=== PATIENT | female | born 1945 | race Caucasian/White ===

== ENCOUNTER 2019-09-09 15:19 | Inpatient (IN) | payer MEDICARE ==
[~2019-09-09] VITALS: Ht 157.5 cm; Wt 81.2 kg
[2019-09-09] MEDS ORDERED: HYDROCODONE/ACETAMINOPHEN 5/325MG TABLET PO ONE (16:30)
[2019-09-09 17:06] LABS: BASOPHILS % 1.2 % (0.0-2.0); HEMATOCRIT. 33.3 % (36.0-48.0); HEMOGLOBIN. 11.1 g/dL (12.0-16.0); LYMPHOCYTES % 23.9 % (20.0-50.0); MEAN CORPUSCULAR HEMOGLOBIN 31.7 pg (28.0-32.0); MEAN CORPUSCULAR VOLUME 94.9 fL (81.0-99.0); MEAN PLATELET VOLUME 9.7 fl (7.4-10.4); MONOCYTES % 7.2 % (2.0-8.0); NEUTROPHILS % 63.7 % (40.0-76.0); PLATELET 243 x1000/uL (130-400); RED BLOOD CELL COUNT 3.51 mill/uL (4.2-5.4)
[2019-09-09 17:14] LABS: CHLORIDE 109 mEq/L (98-107)
[2019-09-09 17:15] LABS: PARTIAL THROMBOPLASTIN TIME 25.9 sec (23.4-31.0); PROTHROMBIN TIME 10.2 sec (9.6-11.0)
[2019-09-09] MEDS ORDERED: HYDRALAZINE 20MG/ML VIAL IV ONE (18:30)
[2019-09-09] MEDS ORDERED: IPRATROPIUM/ALBUTEROL 0.5-3(2.5)MG/3ML NEB NEB PRN (21:15)
[2019-09-09] MEDS ORDERED: DIPHENHYDRAMINE 50MG/ML VIAL IV PRN (21:15)
[2019-09-09] MEDS ORDERED: GUAIFENESIN 200MG/10ML SUGAR FREE UDC PO PRN (21:15)
[2019-09-09] MEDS ORDERED: HYDROCODONE/ACETAMINOPHEN 5/325MG TABLET PO PRN (21:15)
[2019-09-09] MEDS ORDERED: MAGNESIUM HYDROXIDE 400MG/5ML 30ML UDC PO PRN (21:15)
[2019-09-09] MEDS ORDERED: HYDRALAZINE 20MG/ML VIAL IV PRN ×2 (21:15→23:30)
[2019-09-09] MEDS ORDERED: ONDANSETRON HCL 4MG/2ML INJ IV PRN (21:15)
[2019-09-09] MEDS ORDERED: DEXTROSE 50% WATER 50ML SYRINGE IV PRN (21:15)
[2019-09-09] MEDS ORDERED: MAGNESIUM/ALUMINUM HYDROXIDE/SIMETHICONE 30ML UDC PO PRN (21:15)
[2019-09-09] MEDS ORDERED: ACETAMINOPHEN 325MG TABLET PO PRN (21:15)
[2019-09-10] VITALS (7 sets, daily range): BP systolic 124–205; BP diastolic 54–92
[2019-09-10] MEDS: FAMOTIDINE 20MG TABLET PO SCH ×2 (00:49→20:10)
[2019-09-10] MEDS: SODIUM CHLORIDE 0.9% INJ 3ML FLUSH IVF SCH ×4 (00:49→20:11)
[2019-09-10] MEDS ORDERED: METOPROLOL TARTRATE 100MG TABLET PO NR (01:00)
[2019-09-10] MEDS: INSULIN LISPRO 100 UNITS/ML SUBCUT SCH ×5 (01:07→20:13)
[2019-09-10] MEDS ORDERED: PNEUMOCOCCAL 23-VAL P-SAC VAC 0.5 ML IM ONE (02:15)
[2019-09-10 07:12] LABS: EOSINOPHILS % 2.6 % (0.0-5.0); HEMATOCRIT. 33.2 % (36.0-48.0); MEAN CORPUSCULAR VOLUME 96.2 fL (81.0-99.0); MEAN PLATELET VOLUME 10.1 fl (7.4-10.4); MONOCYTES % 6.4 % (2.0-8.0); PLATELET 258 x1000/uL (130-400); RED BLOOD CELL COUNT 3.45 mill/uL (4.2-5.4); RED CELL DISTRIBUTION WIDTH 14.5 % (11.6-14.6)
[2019-09-10] MEDS: BLOOD SUGAR DIAGNOSTIC STRIP TEST SCH ×4 (08:09→20:12)
[2019-09-10] MEDS ORDERED: NIFEDIPINE XL 60MG TAB PO SCH (09:00)
[2019-09-10] MEDS ORDERED: METOPROLOL TARTRATE 25MG TABLET PO SCH (09:00)
[2019-09-10] MEDS: ALLOPURINOL 100 MG TABLET PO SCH (09:47)
[2019-09-10] MEDS: LOSARTAN POTASSIUM 100 MG TABLET PO SCH (09:47)
[2019-09-10] MEDS: METOPROLOL TARTRATE 25MG TABLET PO SCH ×2 (09:48→20:11)
[2019-09-10] MEDS ORDERED: INSULIN GLARGINE UD 100 UNITS/ML SYR SUBCUT SCH ×2 (10:00)
[2019-09-10] MEDS ORDERED: SODIUM POLYSTYRENE SULFONATE 15 G/60 ML BOT PO SCH (10:00)
[2019-09-10] MEDS ORDERED: FAMOTIDINE 20MG TABLET PO SCH (21:00)
[2019-09-11] MEDS ORDERED: NIFEDIPINE XL 60MG TAB PO SCH (00:15)
[2019-09-11] MEDS: BLOOD SUGAR DIAGNOSTIC STRIP TEST SCH ×4 (06:10→21:32)
[2019-09-11] MEDS: SODIUM CHLORIDE 0.9% INJ 3ML FLUSH IVF SCH ×3 (06:10→21:46)
[2019-09-11 06:50] LABS: BASOPHILS % 0.7 % (0.0-2.0); EOSINOPHILS % 3.6 % (0.0-5.0); HEMATOCRIT. 31.2 % (36.0-48.0); HEMOGLOBIN. 10.4 g/dL (12.0-16.0); LYMPHOCYTES % 25.9 % (20.0-50.0); MEAN CORPUSCULAR HEMOGLOBIN 31.8 pg (28.0-32.0); MEAN CORPUSCULAR VOLUME 94.8 fL (81.0-99.0); MEAN PLATELET VOLUME 9.7 fl (7.4-10.4); MONOCYTES % 5.9 % (2.0-8.0); NEUTROPHILS % 63.9 % (40.0-76.0); PLATELET 244 x1000/uL (130-400); RED BLOOD CELL COUNT 3.28 mill/uL (4.2-5.4); RED CELL DISTRIBUTION WIDTH 14.3 % (11.6-14.6)
[2019-09-11 08:00] VITALS: BP 167/66
[2019-09-11] MEDS: LOSARTAN POTASSIUM 100 MG TABLET PO SCH (09:18)
[2019-09-11] MEDS: METOPROLOL TARTRATE 25MG TABLET PO SCH ×2 (09:18→21:45)
[2019-09-11] MEDS: ALLOPURINOL 100 MG TABLET PO SCH (09:18)
[2019-09-11] MEDS: INSULIN LISPRO 100 UNITS/ML SUBCUT SCH ×4 (09:20→21:45)
[2019-09-11 10:30] VITALS: BP 141/65
[2019-09-11 12:00] VITALS: BP 148/62
[2019-09-11] MEDS: INSULIN GLARGINE UD 100 UNITS/ML SYR SUBCUT SCH (13:30)
[2019-09-11 16:00] VITALS: BP 124/82
[2019-09-11 20:00] VITALS: BP 114/45
[2019-09-11] MEDS: FAMOTIDINE 20MG TABLET PO SCH (21:45)
[2019-09-12] VITALS: BP 164/60
[2019-09-12 04:00] VITALS: BP 202/73
[2019-09-12] MEDS: SODIUM CHLORIDE 0.9% INJ 3ML FLUSH IVF SCH ×3 (05:25→21:01)
[2019-09-12] MEDS: CLONIDINE 0.1MG TABLET PO PRN (05:27)
[2019-09-12 07:01] LABS: BASOPHILS % 1.3 % (0.0-2.0); EOSINOPHILS % 3.3 % (0.0-5.0); HEMATOCRIT. 31.3 % (36.0-48.0); HEMOGLOBIN. 10.6 g/dL (12.0-16.0); LYMPHOCYTES % 23.6 % (20.0-50.0); MEAN CORPUSCULAR VOLUME 94.9 fL (81.0-99.0); MONOCYTES % 6.7 % (2.0-8.0); NEUTROPHILS % 65.1 % (40.0-76.0); PLATELET 195 x1000/uL (130-400); RED CELL DISTRIBUTION WIDTH 14.1 % (11.6-14.6)
[2019-09-12 08:00] VITALS: BP 128/44
[2019-09-12] MEDS: INSULIN LISPRO 100 UNITS/ML SUBCUT SCH ×5 (08:10→21:00)
[2019-09-12] MEDS: BLOOD SUGAR DIAGNOSTIC STRIP TEST SCH ×4 (08:21→21:01)
[2019-09-12] MEDS: LOSARTAN POTASSIUM 100 MG TABLET PO SCH (09:51)
[2019-09-12] MEDS: ALLOPURINOL 100 MG TABLET PO SCH (09:51)
[2019-09-12] MEDS: METOPROLOL TARTRATE 25MG TABLET PO SCH ×2 (09:51→21:01)
[2019-09-12] MEDS: INSULIN GLARGINE UD 100 UNITS/ML SYR SUBCUT SCH (09:55)
[2019-09-12 16:00] VITALS: BP 109/46
[2019-09-12 20:00] VITALS: BP 184/71
[2019-09-12] MEDS: FAMOTIDINE 20MG TABLET PO SCH (21:00)
[2019-09-13] VITALS: BP 178/71
[2019-09-13] MEDS: CLONIDINE 0.1MG TABLET PO PRN ×2 (03:24→10:09)
[2019-09-13 04:00] VITALS: BP 117/35
[2019-09-13] MEDS: SODIUM CHLORIDE 0.9% INJ 3ML FLUSH IVF SCH ×2 (06:35→14:25)
[2019-09-13 07:38] LABS: BASOPHILS % 0.8 % (0.0-2.0); EOSINOPHILS % 3.5 % (0.0-5.0); HEMATOCRIT. 30.7 % (36.0-48.0); HEMOGLOBIN. 10.6 g/dL (12.0-16.0); LYMPHOCYTES % 21.3 % (20.0-50.0); MEAN CORPUSCULAR HEMOGLOBIN 32.8 pg (28.0-32.0); MEAN CORPUSCULAR VOLUME 94.4 fL (81.0-99.0); MEAN PLATELET VOLUME 9.8 fl (7.4-10.4); MONOCYTES % 6.7 % (2.0-8.0); NEUTROPHILS % 67.7 % (40.0-76.0); PLATELET 212 x1000/uL (130-400); RED BLOOD CELL COUNT 3.25 mill/uL (4.2-5.4)
[2019-09-13] MEDS: BLOOD SUGAR DIAGNOSTIC STRIP TEST SCH ×2 (08:06→12:40)
[2019-09-13] MEDS: INSULIN LISPRO 100 UNITS/ML SUBCUT SCH ×2 (08:44→14:37)
[2019-09-13] MEDS: METOPROLOL TARTRATE 25MG TABLET PO SCH (10:08)
[2019-09-13] MEDS: ALLOPURINOL 100 MG TABLET PO SCH (10:08)
[2019-09-13] MEDS: LOSARTAN POTASSIUM 100 MG TABLET PO SCH (10:09)
[2019-09-13] MEDS: INSULIN GLARGINE UD 100 UNITS/ML SYR SUBCUT SCH (12:55)
[2019-09-13 15:09] VITALS: BP 152/55
== END 2019-09-13 18:07 | DRG 559 ==
LOC: ER 15:19 → EDBEDREQTM 20:36 → EDBEDREQ 20:36 → ENRESERV 22:13 → 7WST 23:45
PROVIDERS: ADMIT Internal Medicine; ATTEND Internal Medicine
PROC: 3E1M39Z Irrigation of Peritoneal Cavity using Dialysate, Percutaneous Approach (ICD-10-PCS; 2019-09-10)
PROC: 3E1M39Z Irrigation of Peritoneal Cavity using Dialysate, Percutaneous Approach (ICD-10-PCS; 2019-09-11)
PROC: 3E1M39Z Irrigation of Peritoneal Cavity using Dialysate, Percutaneous Approach (ICD-10-PCS; 2019-09-12)
PROC: 3E1M39Z Irrigation of Peritoneal Cavity using Dialysate, Percutaneous Approach (ICD-10-PCS; principal; 2019-09-13)
DX: T84.124A Displacement of internal fixation device of right femur, initial encounter (principal); N18.6 End stage renal disease; I13.11 Hypertensive heart and chronic kidney disease without heart failure, with stage 5 chronic kidney disease, or end stage renal disease; N17.9 Acute kidney failure, unspecified; E87.5 Hyperkalemia; E11.22 Type 2 diabetes mellitus with diabetic chronic kidney disease; M10.9 Gout, unspecified; M19.90 Unspecified osteoarthritis, unspecified site; R09.89 Other specified symptoms and signs involving the circulatory and respiratory systems; E11.42 Type 2 diabetes mellitus with diabetic polyneuropathy; D64.9 Anemia, unspecified; M47.817 Spondylosis without myelopathy or radiculopathy, lumbosacral region; Y83.8 Other surgical procedures as the cause of abnormal reaction of the patient, or of later complication, without mention of misadventure at the time of the procedure; Z99.2 Dependence on renal dialysis; Y92.89 Other specified places as the place of occurrence of the external cause
CPT/HCPCS: 36415; 71045; 72170; 73560; 80048; 80053; 82962; 83036; 83880; 84443; 84484; 85025; 90732; 93005; 93970; 97116; 97162; 97166; 97530; 99291; J0360; J1200; J1815

== ENCOUNTER 2019-09-13 18:10 | Inpatient (IN) | payer MEDICARE ==
[~2019-09-13] VITALS: Ht 157.5 cm; Wt 81.2 kg
[2019-09-13 19:00] VITALS: BP 188/51
[2019-09-13] MEDS ORDERED: ACETAMINOPHEN 325MG TABLET PO PRN (19:30)
[2019-09-13] MEDS ORDERED: DEXTROSE 50% WATER 50ML SYRINGE IV PRN (19:30)
[2019-09-13] MEDS ORDERED: GUAIFENESIN 200MG/10ML SUGAR FREE UDC PO PRN (19:30)
[2019-09-13] MEDS ORDERED: MAGNESIUM/ALUMINUM HYDROXIDE/SIMETHICONE 30ML UDC PO PRN (19:30)
[2019-09-13] MEDS ORDERED: ONDANSETRON HCL 4MG/2ML INJ IV PRN (19:30)
[2019-09-13] MEDS ORDERED: MAGNESIUM HYDROXIDE 400MG/5ML 30ML UDC PO PRN (19:30)
[2019-09-13] MEDS ORDERED: DIPHENHYDRAMINE 50MG/ML VIAL IV PRN (19:30)
[2019-09-13] MEDS ORDERED: IPRATROPIUM/ALBUTEROL 0.5-3(2.5)MG/3ML NEB HHN PRN (19:30)
[2019-09-13 20:00] VITALS: BP 188/51
[2019-09-13] MEDS: BLOOD SUGAR DIAGNOSTIC STRIP TEST SCH (21:01)
[2019-09-13] MEDS: INSULIN LISPRO 100 UNITS/ML SUBCUT SCH (21:01)
[2019-09-13] MEDS: CLONIDINE 0.1MG TABLET PO PRN (21:03)
[2019-09-13] MEDS: METOPROLOL TARTRATE 50MG TABLET PO SCH (21:04)
[2019-09-13] MEDS: FAMOTIDINE 20MG TABLET PO SCH (21:04)
[2019-09-14] MEDS: BLOOD SUGAR DIAGNOSTIC STRIP TEST SCH ×4 (05:38→21:09)
[2019-09-14] MEDS: INSULIN LISPRO 100 UNITS/ML SUBCUT SCH ×4 (06:47→21:19)
[2019-09-14 07:50] LABS: BASOPHILS % 0.7 % (0.0-2.0); HEMATOCRIT. 29.5 % (36.0-48.0); LYMPHOCYTES % 21.7 % (20.0-50.0); MEAN CORPUSCULAR VOLUME 94.1 fL (81.0-99.0); MEAN PLATELET VOLUME 9.7 fl (7.4-10.4); MONOCYTES % 6.8 % (2.0-8.0); NEUTROPHILS % 67.8 % (40.0-76.0); PLATELET 220 x1000/uL (130-400); RED BLOOD CELL COUNT 3.13 mill/uL (4.2-5.4); RED CELL DISTRIBUTION WIDTH 13.8 % (11.6-14.6)
[2019-09-14 08:13] VITALS: BP 148/66
[2019-09-14 08:18] LABS: CHLORIDE 106 mEq/L (98-107)
[2019-09-14] MEDS: METOPROLOL TARTRATE 50MG TABLET PO SCH ×2 (08:37→20:53)
[2019-09-14] MEDS: LOSARTAN POTASSIUM 100 MG TABLET PO SCH (08:37)
[2019-09-14] MEDS: ALLOPURINOL 100 MG TABLET PO SCH (08:37)
[2019-09-14] MEDS: ENOXAPARIN 30MG/0.3ML SYR SUBCUT SCH (08:38)
[2019-09-14] MEDS: HYDROCODONE/ACETAMINOPHEN 5/325MG TABLET PO PRN ×3 (08:38→20:52)
[2019-09-14] MEDS ORDERED: POTASSIUM CHLORIDE 20MEQ TABLET SR PO NR (09:00)
[2019-09-14] MEDS: INSULIN GLARGINE UD 100 UNITS/ML SYR SUBCUT SCH (11:55)
[2019-09-14] MEDS: DOCUSATE SODIUM 100MG CAPSULE PO SCH (17:12)
[2019-09-14 20:00] VITALS: BP 169/70
[2019-09-14] MEDS: POLYETHYLENE GLYCOL 3350 (17GM) 1 DOSE PACK PO SCH (20:53)
[2019-09-14] MEDS: FAMOTIDINE 20MG TABLET PO SCH (21:18)
[2019-09-15] MEDS: BLOOD SUGAR DIAGNOSTIC STRIP TEST SCH ×4 (06:20→21:00)
[2019-09-15] MEDS: PANTOPRAZOLE 40MG DR TABLET PO SCH (06:20)
[2019-09-15] MEDS: HYDROCODONE/ACETAMINOPHEN 5/325MG TABLET PO PRN ×2 (06:29→10:41)
[2019-09-15 07:51] VITALS: BP 104/54
[2019-09-15] MEDS: INSULIN LISPRO 100 UNITS/ML SUBCUT SCH ×4 (08:39→21:01)
[2019-09-15] MEDS: METOPROLOL TARTRATE 50MG TABLET PO SCH ×2 (08:41→20:58)
[2019-09-15] MEDS: LOSARTAN POTASSIUM 100 MG TABLET PO SCH (08:41)
[2019-09-15] MEDS: DOCUSATE SODIUM 100MG CAPSULE PO SCH ×2 (08:43→16:36)
[2019-09-15] MEDS: ENOXAPARIN 30MG/0.3ML SYR SUBCUT SCH (08:43)
[2019-09-15] MEDS: ALLOPURINOL 100 MG TABLET PO SCH (08:43)
[2019-09-15] MEDS: INSULIN GLARGINE UD 100 UNITS/ML SYR SUBCUT SCH (09:21)
[2019-09-15 10:25] LABS: BASOPHILS % 0.7 % (0.0-2.0); EOSINOPHILS % 2.7 % (0.0-5.0); HEMOGLOBIN. 10.4 g/dL (12.0-16.0); MEAN CORPUSCULAR HEMOGLOBIN 32.1 pg (28.0-32.0); MEAN CORPUSCULAR VOLUME 95.4 fL (81.0-99.0); MEAN PLATELET VOLUME 9.6 fl (7.4-10.4); NEUTROPHILS % 72.6 % (40.0-76.0); PLATELET 217 x1000/uL (130-400); RED BLOOD CELL COUNT 3.25 mill/uL (4.2-5.4); RED CELL DISTRIBUTION WIDTH 13.9 % (11.6-14.6)
[2019-09-15] MEDS ORDERED: LACTULOSE 20G/30ML UDC PO PRN (10:30)
[2019-09-15] MEDS ORDERED: NA PHOS,M-B/NA PHOS,DI-BA ENEMA 118ML PR PRN (10:30)
[2019-09-15] MEDS ORDERED: BISACODYL 10MG SUPP PR PRN (10:30)
[2019-09-15] MEDS ORDERED: BISACODYL 5MG TABLET PO PRN (10:45)
[2019-09-15 20:00] VITALS: BP 176/70
[2019-09-15] MEDS: FAMOTIDINE 20MG TABLET PO SCH (20:57)
[2019-09-15] MEDS: POLYETHYLENE GLYCOL 3350 (17GM) 1 DOSE PACK PO SCH (21:00)
[2019-09-16] MEDS: HYDROCODONE/ACETAMINOPHEN 5/325MG TABLET PO PRN ×2 (03:31→14:20)
[2019-09-16] MEDS: BLOOD SUGAR DIAGNOSTIC STRIP TEST SCH ×4 (06:16→21:36)
[2019-09-16] MEDS: PANTOPRAZOLE 40MG DR TABLET PO SCH (06:16)
[2019-09-16 06:54] LABS: BASOPHILS % 0.8 % (0.0-2.0); EOSINOPHILS % 2.4 % (0.0-5.0); HEMATOCRIT. 28.6 % (36.0-48.0); HEMOGLOBIN. 9.8 g/dL (12.0-16.0); LYMPHOCYTES % 15.5 % (20.0-50.0); MEAN CORPUSCULAR HEMOGLOBIN 32.2 pg (28.0-32.0); MEAN CORPUSCULAR VOLUME 94.3 fL (81.0-99.0); MEAN PLATELET VOLUME 9.9 fl (7.4-10.4); NEUTROPHILS % 73.3 % (40.0-76.0); PLATELET 215 x1000/uL (130-400); RED BLOOD CELL COUNT 3.03 mill/uL (4.2-5.4); RED CELL DISTRIBUTION WIDTH 13.9 % (11.6-14.6)
[2019-09-16 06:56] LABS: FERRITIN 71 ng/mL (10-291)
[2019-09-16 07:34] LABS: PHOSPHORUS 3.8 mg/dL (2.5-4.9)
[2019-09-16] MEDS: INSULIN LISPRO 100 UNITS/ML SUBCUT SCH ×4 (08:01→23:21)
[2019-09-16 08:11] VITALS: BP 197/82
[2019-09-16] MEDS: DOCUSATE SODIUM 100MG CAPSULE PO SCH ×2 (08:27→17:27)
[2019-09-16] MEDS: METOPROLOL TARTRATE 50MG TABLET PO SCH ×2 (08:27→21:35)
[2019-09-16] MEDS: ALLOPURINOL 100 MG TABLET PO SCH (08:27)
[2019-09-16] MEDS: ENOXAPARIN 30MG/0.3ML SYR SUBCUT SCH (08:28)
[2019-09-16] MEDS: LOSARTAN POTASSIUM 100 MG TABLET PO SCH (08:30)
[2019-09-16] MEDS: MAGNESIUM OXIDE 400MG TABLET PO SCH (10:28)
[2019-09-16] MEDS: INSULIN GLARGINE UD 100 UNITS/ML SYR SUBCUT SCH (10:32)
[2019-09-16 18:10] LABS: CLARITY URINE CLOUDY (CLEAR); COLOR URINE YELLOW (YELLOW); KETONES URINE NEGATIVE (NEGATIVE); LEUKOCYTE ESTERASE URINE 3+ (NEGATIVE); NITRITE URINE NEGATIVE (NEGATIVE); OCCULT BLOOD URINE 2+ (NEGATIVE); PROTEIN URINE 3+ (NEGATIVE); SPECIFIC GRAVITY URINE 1.014 (1.005-1.030); UROBILINOGEN URINE 0.2 E.U./dL (0.2-1.0)
[2019-09-16 19:47] LABS: VITAMIN B12 SERUM 767 pg/mL (211-911)
[2019-09-16 20:00] VITALS: BP 158/60
[2019-09-16 20:22] LABS: FOLIC ACID (FOLATE) SERUM > 20.00 ng/mL (>5.38)
[2019-09-16] MEDS: POLYETHYLENE GLYCOL 3350 (17GM) 1 DOSE PACK PO SCH (21:00)
[2019-09-16] MEDS: FAMOTIDINE 20MG TABLET PO SCH (21:35)
[2019-09-16] MEDS: INSULIN NPH (HUMULIN-N) 100 UNITS/ML 3ML VIAL SUBCUT SCH (23:20)
[2019-09-17] MEDS: BLOOD SUGAR DIAGNOSTIC STRIP TEST SCH ×4 (06:19→20:28)
[2019-09-17] MEDS: INSULIN LISPRO 100 UNITS/ML SUBCUT SCH ×4 (06:56→20:39)
[2019-09-17 08:00] VITALS: BP 167/55
[2019-09-17] MEDS: LOSARTAN POTASSIUM 100 MG TABLET PO SCH (08:18)
[2019-09-17] MEDS: ENOXAPARIN 30MG/0.3ML SYR SUBCUT SCH (08:18)
[2019-09-17] MEDS: ALLOPURINOL 100 MG TABLET PO SCH (08:19)
[2019-09-17] MEDS: METOPROLOL TARTRATE 50MG TABLET PO SCH ×2 (08:19→20:25)
[2019-09-17] MEDS: LINAGLIPTIN 5MG TABLET PO SCH (08:19)
[2019-09-17] MEDS: MAGNESIUM OXIDE 400MG TABLET PO SCH (08:19)
[2019-09-17] MEDS: DOCUSATE SODIUM 100MG CAPSULE PO SCH ×2 (08:19→16:45)
[2019-09-17] MEDS: INSULIN NPH (HUMULIN-N) 100 UNITS/ML 3ML VIAL SUBCUT SCH ×2 (08:28→20:40)
[2019-09-17] MEDS: GLIMEPIRIDE 1MG TABLET PO SCH (09:18)
[2019-09-17 10:53] VITALS: BP 181/90
[2019-09-17] MEDS: CLONIDINE 0.1MG TABLET PO PRN (10:53)
[2019-09-17 20:00] VITALS: BP 161/52
[2019-09-17] MEDS: FAMOTIDINE 20MG TABLET PO SCH (20:25)
[2019-09-17] MEDS: POLYETHYLENE GLYCOL 3350 (17GM) 1 DOSE PACK PO SCH (20:25)
[2019-09-17 21:45] VITALS: BP 124/41
[2019-09-18] MEDS: BLOOD SUGAR DIAGNOSTIC STRIP TEST SCH ×4 (06:12→20:43)
[2019-09-18] MEDS: INSULIN LISPRO 100 UNITS/ML SUBCUT SCH ×6 (06:50→20:54)
[2019-09-18 07:52] VITALS: BP 153/65
[2019-09-18] MEDS: ALLOPURINOL 100 MG TABLET PO SCH (08:50)
[2019-09-18] MEDS: DOCUSATE SODIUM 100MG CAPSULE PO SCH ×2 (08:50→17:25)
[2019-09-18] MEDS: LINAGLIPTIN 5MG TABLET PO SCH (08:50)
[2019-09-18] MEDS: METOPROLOL TARTRATE 50MG TABLET PO SCH ×2 (08:50→20:42)
[2019-09-18] MEDS: GLIMEPIRIDE 1MG TABLET PO SCH (08:50)
[2019-09-18] MEDS: LOSARTAN POTASSIUM 100 MG TABLET PO SCH (08:50)
[2019-09-18] MEDS: ENOXAPARIN 30MG/0.3ML SYR SUBCUT SCH (08:51)
[2019-09-18] MEDS: POLYVINYL ALCOHOL OPHTH DROPS 15ML BOTHEYE PRN (09:12)
[2019-09-18] MEDS: INSULIN NPH (HUMULIN-N) 100 UNITS/ML 3ML VIAL SUBCUT SCH ×2 (09:18→20:53)
[2019-09-18 20:00] VITALS: BP 180/73
[2019-09-18] MEDS: FAMOTIDINE 20MG TABLET PO SCH (20:43)
[2019-09-18] MEDS: POLYETHYLENE GLYCOL 3350 (17GM) 1 DOSE PACK PO SCH (20:43)
[2019-09-19] MEDS: BLOOD SUGAR DIAGNOSTIC STRIP TEST SCH ×4 (06:06→21:50)
[2019-09-19] MEDS: INSULIN NPH (HUMULIN-N) 100 UNITS/ML 3ML VIAL SUBCUT SCH ×2 (06:17→22:00)
[2019-09-19] MEDS: INSULIN LISPRO 100 UNITS/ML SUBCUT SCH ×5 (06:20→21:59)
[2019-09-19 07:12] LABS: BASOPHILS % 0.7 % (0.0-2.0); EOSINOPHILS % 2.8 % (0.0-5.0); HEMATOCRIT. 28.9 % (36.0-48.0); HEMOGLOBIN. 9.8 g/dL (12.0-16.0); LYMPHOCYTES % 21.5 % (20.0-50.0); MEAN CORPUSCULAR HEMOGLOBIN 31.9 pg (28.0-32.0); MEAN PLATELET VOLUME 9.8 fl (7.4-10.4); MONOCYTES % 9.1 % (2.0-8.0); NEUTROPHILS % 65.9 % (40.0-76.0); PLATELET 213 x1000/uL (130-400); RED BLOOD CELL COUNT 3.08 mill/uL (4.2-5.4); RED CELL DISTRIBUTION WIDTH 13.4 % (11.6-14.6)
[2019-09-19 07:59] VITALS: BP 177/74
[2019-09-19] MEDS: DOCUSATE SODIUM 100MG CAPSULE PO SCH ×2 (09:03→18:10)
[2019-09-19] MEDS: LOSARTAN POTASSIUM 100 MG TABLET PO SCH (09:03)
[2019-09-19] MEDS: ALLOPURINOL 100 MG TABLET PO SCH (09:04)
[2019-09-19] MEDS: METOPROLOL TARTRATE 50MG TABLET PO SCH ×2 (09:04→21:11)
[2019-09-19] MEDS: LINAGLIPTIN 5MG TABLET PO SCH (09:04)
[2019-09-19] MEDS: GLIMEPIRIDE 1MG TABLET PO SCH (09:05)
[2019-09-19] MEDS: ENOXAPARIN 30MG/0.3ML SYR SUBCUT SCH (09:06)
[2019-09-19] MEDS ORDERED: POTASSIUM CHLORIDE 20MEQ TABLET SR PO NR (09:30)
[2019-09-19] MEDS: HYDROCODONE/ACETAMINOPHEN 5/325MG TABLET PO PRN (16:35)
[2019-09-19 20:00] VITALS: BP 165/82
[2019-09-19] MEDS: POLYETHYLENE GLYCOL 3350 (17GM) 1 DOSE PACK PO SCH (21:00)
[2019-09-19] MEDS: FAMOTIDINE 20MG TABLET PO SCH (21:10)
[2019-09-19] MEDS: AMITRIPTYLINE 10MG TABLET PO SCH ×2 (21:13→21:17)
[2019-09-19 23:00] VITALS: BP 134/72
[2019-09-20] MEDS: BLOOD SUGAR DIAGNOSTIC STRIP TEST SCH ×4 (06:29→21:00)
[2019-09-20] MEDS: INSULIN LISPRO 100 UNITS/ML SUBCUT SCH ×5 (06:42→21:00)
[2019-09-20] MEDS: INSULIN NPH (HUMULIN-N) 100 UNITS/ML 3ML VIAL SUBCUT SCH ×2 (06:43→22:40)
[2019-09-20 07:50] LABS: PHOSPHORUS 3.5 mg/dL (2.5-4.9)
[2019-09-20 08:00] VITALS: BP 119/32
[2019-09-20] MEDS: DOCUSATE SODIUM 100MG CAPSULE PO SCH ×2 (09:19→16:24)
[2019-09-20] MEDS: ENOXAPARIN 30MG/0.3ML SYR SUBCUT SCH (09:19)
[2019-09-20] MEDS: LOSARTAN POTASSIUM 100 MG TABLET PO SCH (09:19)
[2019-09-20] MEDS: LINAGLIPTIN 5MG TABLET PO SCH (09:19)
[2019-09-20] MEDS: ALLOPURINOL 100 MG TABLET PO SCH (09:19)
[2019-09-20] MEDS: GLIMEPIRIDE 1MG TABLET PO SCH (09:19)
[2019-09-20] MEDS: METOPROLOL TARTRATE 50MG TABLET PO SCH ×2 (09:19→22:31)
[2019-09-20 09:28] LABS: BASOPHILS % 0.8 % (0.0-2.0); EOSINOPHILS % 3.6 % (0.0-5.0); HEMATOCRIT. 30.4 % (36.0-48.0); HEMOGLOBIN. 10.3 g/dL (12.0-16.0); LYMPHOCYTES % 27.8 % (20.0-50.0); MEAN CORPUSCULAR HEMOGLOBIN 31.6 pg (28.0-32.0); MEAN CORPUSCULAR VOLUME 93.6 fL (81.0-99.0); MONOCYTES % 11.2 % (2.0-8.0); NEUTROPHILS % 56.6 % (40.0-76.0); PLATELET 233 x1000/uL (130-400); RED BLOOD CELL COUNT 3.25 mill/uL (4.2-5.4)
[2019-09-20] MEDS: HYDROCODONE/ACETAMINOPHEN 5/325MG TABLET PO PRN ×2 (09:33→13:47)
[2019-09-20] MEDS ORDERED: POTASSIUM CHLORIDE 10MEQ TABLET SR PO NR (10:30)
[2019-09-20] MEDS ORDERED: MAGNESIUM 2 G PREMIX 50 ML IV NR (11:30)
[2019-09-20] MEDS: MAGNESIUM OXIDE 400MG TABLET PO SCH (16:24)
[2019-09-20 20:00] VITALS: BP 142/53
[2019-09-20] MEDS: POLYETHYLENE GLYCOL 3350 (17GM) 1 DOSE PACK PO SCH (22:31)
[2019-09-20] MEDS: AMITRIPTYLINE 10MG TABLET PO SCH (22:32)
[2019-09-20] MEDS: FAMOTIDINE 20MG TABLET PO SCH (22:32)
[2019-09-21 04:08] LABS: 25-HYDROXY VITAMIN D3 22 ng/mL (.)
[2019-09-21 06:20] LABS: BASOPHILS % 0.9 % (0.0-2.0); EOSINOPHILS % 3.3 % (0.0-5.0); HEMATOCRIT. 30.9 % (36.0-48.0); HEMOGLOBIN. 10.4 g/dL (12.0-16.0); LYMPHOCYTES % 22.1 % (20.0-50.0); MEAN CORPUSCULAR HEMOGLOBIN 31.5 pg (28.0-32.0); MEAN CORPUSCULAR VOLUME 93.7 fL (81.0-99.0); MEAN PLATELET VOLUME 9.2 fl (7.4-10.4); MONOCYTES % 8.1 % (2.0-8.0); NEUTROPHILS % 65.6 % (40.0-76.0); PLATELET 241 x1000/uL (130-400)
[2019-09-21 06:26] LABS: PHOSPHORUS 3.4 mg/dL (2.5-4.9)
[2019-09-21] MEDS: BLOOD SUGAR DIAGNOSTIC STRIP TEST SCH ×4 (06:36→21:01)
[2019-09-21] MEDS: INSULIN NPH (HUMULIN-N) 100 UNITS/ML 3ML VIAL SUBCUT SCH ×2 (06:42→21:10)
[2019-09-21] MEDS: INSULIN LISPRO 100 UNITS/ML SUBCUT SCH ×4 (07:23→21:11)
[2019-09-21 07:45] VITALS: BP 155/50
[2019-09-21] MEDS: LINAGLIPTIN 5MG TABLET PO SCH (08:02)
[2019-09-21] MEDS: MAGNESIUM OXIDE 400MG TABLET PO SCH ×2 (08:02→17:26)
[2019-09-21] MEDS: HYDROCODONE/ACETAMINOPHEN 5/325MG TABLET PO PRN ×2 (08:02→12:54)
[2019-09-21] MEDS: LOSARTAN POTASSIUM 100 MG TABLET PO SCH (08:02)
[2019-09-21] MEDS: ENOXAPARIN 30MG/0.3ML SYR SUBCUT SCH (08:02)
[2019-09-21] MEDS: DOCUSATE SODIUM 100MG CAPSULE PO SCH ×2 (08:02→17:27)
[2019-09-21] MEDS: ALLOPURINOL 100 MG TABLET PO SCH (08:02)
[2019-09-21] MEDS: METOPROLOL TARTRATE 50MG TABLET PO SCH ×2 (08:02→21:01)
[2019-09-21] MEDS: GLIMEPIRIDE 1MG TABLET PO SCH (08:02)
[2019-09-21] MEDS ORDERED: POTASSIUM CHLORIDE 20MEQ TABLET SR PO NR (09:30)
[2019-09-21] MEDS ORDERED: ERGOCALCIFEROL 50000UNITS CAPSULE PO SCH (17:00)
[2019-09-21] MEDS ORDERED: INSULIN LISPRO 100 UNITS/ML SUBCUT SCH (17:00)
[2019-09-21] MEDS: CLONIDINE 0.1MG TABLET PO PRN (19:57)
[2019-09-21 20:00] VITALS: BP 157/63
[2019-09-21] MEDS: POLYETHYLENE GLYCOL 3350 (17GM) 1 DOSE PACK PO SCH (21:00)
[2019-09-21] MEDS: FAMOTIDINE 20MG TABLET PO SCH (21:01)
[2019-09-21] MEDS: AMITRIPTYLINE 10MG TABLET PO SCH (21:01)
[2019-09-22] MEDS: BLOOD SUGAR DIAGNOSTIC STRIP TEST SCH ×4 (06:11→21:48)
[2019-09-22] MEDS: INSULIN NPH (HUMULIN-N) 100 UNITS/ML 3ML VIAL SUBCUT SCH ×2 (06:19→22:01)
[2019-09-22] MEDS: INSULIN LISPRO 100 UNITS/ML SUBCUT SCH ×5 (06:21→22:02)
[2019-09-22 08:00] VITALS: BP 158/75
[2019-09-22] MEDS: LINAGLIPTIN 5MG TABLET PO SCH (08:43)
[2019-09-22] MEDS: DOCUSATE SODIUM 100MG CAPSULE PO SCH ×2 (08:43→16:37)
[2019-09-22] MEDS: MAGNESIUM OXIDE 400MG TABLET PO SCH ×2 (08:43→16:37)
[2019-09-22] MEDS: GLIMEPIRIDE 1MG TABLET PO SCH (08:43)
[2019-09-22] MEDS: LOSARTAN POTASSIUM 100 MG TABLET PO SCH (08:43)
[2019-09-22] MEDS: METOPROLOL TARTRATE 50MG TABLET PO SCH ×2 (08:43→21:47)
[2019-09-22] MEDS: ENOXAPARIN 30MG/0.3ML SYR SUBCUT SCH (08:44)
[2019-09-22] MEDS: ALLOPURINOL 100 MG TABLET PO SCH (08:44)
[2019-09-22] MEDS: POLYVINYL ALCOHOL OPHTH DROPS 15ML BOTHEYE PRN (08:48)
[2019-09-22 08:54] LABS: BASOPHILS % 0.8 % (0.0-2.0); EOSINOPHILS % 3.2 % (0.0-5.0); HEMOGLOBIN. 9.7 g/dL (12.0-16.0); LYMPHOCYTES % 23.6 % (20.0-50.0); MEAN CORPUSCULAR HEMOGLOBIN 31.3 pg (28.0-32.0); MEAN CORPUSCULAR VOLUME 94.1 fL (81.0-99.0); MEAN PLATELET VOLUME 9.7 fl (7.4-10.4); MONOCYTES % 9.1 % (2.0-8.0); NEUTROPHILS % 63.3 % (40.0-76.0); PLATELET 233 x1000/uL (130-400); RED BLOOD CELL COUNT 3.08 mill/uL (4.2-5.4)
[2019-09-22] MEDS: HYDROCODONE/ACETAMINOPHEN 5/325MG TABLET PO PRN (09:41)
[2019-09-22 20:00] VITALS: BP 181/72
[2019-09-22] MEDS: AMITRIPTYLINE 10MG TABLET PO SCH (21:48)
[2019-09-22] MEDS: POLYETHYLENE GLYCOL 3350 (17GM) 1 DOSE PACK PO SCH (21:48)
[2019-09-22] MEDS: FAMOTIDINE 20MG TABLET PO SCH (21:48)
[2019-09-23] MEDS: BLOOD SUGAR DIAGNOSTIC STRIP TEST SCH ×4 (07:12→21:42)
[2019-09-23] MEDS: INSULIN LISPRO 100 UNITS/ML SUBCUT SCH ×5 (07:25→21:00)
[2019-09-23 07:57] VITALS: BP 143/62
[2019-09-23 08:08] LABS: BASOPHILS % 0.9 % (0.0-2.0); EOSINOPHILS % 3.1 % (0.0-5.0); HEMATOCRIT. 29.5 % (36.0-48.0); HEMOGLOBIN. 10.1 g/dL (12.0-16.0); MEAN CORPUSCULAR HEMOGLOBIN 32.2 pg (28.0-32.0); MEAN CORPUSCULAR VOLUME 93.7 fL (81.0-99.0); MEAN PLATELET VOLUME 9.5 fl (7.4-10.4); MONOCYTES % 9.3 % (2.0-8.0); NEUTROPHILS % 61.7 % (40.0-76.0); PLATELET 276 x1000/uL (130-400); RED BLOOD CELL COUNT 3.15 mill/uL (4.2-5.4); RED CELL DISTRIBUTION WIDTH 13.2 % (11.6-14.6)
[2019-09-23 08:27] LABS: PHOSPHORUS 3.5 mg/dL (2.5-4.9)
[2019-09-23] MEDS: MAGNESIUM OXIDE 400MG TABLET PO SCH ×2 (08:38→16:32)
[2019-09-23] MEDS: METOPROLOL TARTRATE 50MG TABLET PO SCH ×2 (08:38→21:35)
[2019-09-23] MEDS: ENOXAPARIN 30MG/0.3ML SYR SUBCUT SCH (08:38)
[2019-09-23] MEDS: DOCUSATE SODIUM 100MG CAPSULE PO SCH ×2 (08:38→16:32)
[2019-09-23] MEDS: GLIMEPIRIDE 1MG TABLET PO SCH (08:38)
[2019-09-23] MEDS: ALLOPURINOL 100 MG TABLET PO SCH (08:38)
[2019-09-23] MEDS: LINAGLIPTIN 5MG TABLET PO SCH (08:38)
[2019-09-23] MEDS: LOSARTAN POTASSIUM 100 MG TABLET PO SCH (08:38)
[2019-09-23] MEDS: HYDROCODONE/ACETAMINOPHEN 5/325MG TABLET PO PRN (08:47)
[2019-09-23] MEDS: POLYVINYL ALCOHOL OPHTH DROPS 15ML BOTHEYE PRN (08:47)
[2019-09-23] MEDS: INSULIN NPH (HUMULIN-N) 100 UNITS/ML 3ML VIAL SUBCUT SCH ×2 (09:26→21:44)
[2019-09-23 13:10] VITALS: BP 172/74
[2019-09-23] MEDS: CLONIDINE 0.1MG TABLET PO PRN (13:28)
[2019-09-23 20:00] VITALS: BP 112/53
[2019-09-23] MEDS: POLYETHYLENE GLYCOL 3350 (17GM) 1 DOSE PACK PO SCH (21:00)
[2019-09-23] MEDS: AMITRIPTYLINE 10MG TABLET PO SCH (21:35)
[2019-09-23] MEDS: FAMOTIDINE 20MG TABLET PO SCH (21:35)
[2019-09-24] MEDS: BLOOD SUGAR DIAGNOSTIC STRIP TEST SCH ×2 (06:45→11:25)
[2019-09-24] MEDS: INSULIN NPH (HUMULIN-N) 100 UNITS/ML 3ML VIAL SUBCUT SCH (07:02)
[2019-09-24 08:00] VITALS: BP 110/37
[2019-09-24] MEDS: GLIMEPIRIDE 1MG TABLET PO SCH (08:13)
[2019-09-24] MEDS: HYDROCODONE/ACETAMINOPHEN 5/325MG TABLET PO PRN (08:14)
[2019-09-24] MEDS: DOCUSATE SODIUM 100MG CAPSULE PO SCH (08:14)
[2019-09-24] MEDS: LINAGLIPTIN 5MG TABLET PO SCH (08:14)
[2019-09-24] MEDS: ALLOPURINOL 100 MG TABLET PO SCH (08:14)
[2019-09-24] MEDS: MAGNESIUM OXIDE 400MG TABLET PO SCH (08:14)
[2019-09-24] MEDS: METOPROLOL TARTRATE 50MG TABLET PO SCH (08:14)
[2019-09-24] MEDS: LOSARTAN POTASSIUM 100 MG TABLET PO SCH (08:14)
[2019-09-24] MEDS: ENOXAPARIN 30MG/0.3ML SYR SUBCUT SCH (08:15)
[2019-09-24] MEDS: INSULIN LISPRO 100 UNITS/ML SUBCUT SCH ×2 (09:00→12:31)
[2019-09-24 09:43] VITALS: BP 110/50
== END 2019-09-24 13:33 | disposition home health service (06) | DRG 533 ==
PROVIDERS: ADMIT Physical Medicine & Rehabilitation Spinal Cord Injury Medicine; ATTEND Internal Medicine
PROC: 5A1D70Z Performance of Urinary Filtration, Intermittent, Less than 6 Hours Per Day (ICD-10-PCS; principal; 2019-09-16)
PROC: 5A1D70Z Performance of Urinary Filtration, Intermittent, Less than 6 Hours Per Day (ICD-10-PCS; 2019-09-19)
PROC: 5A1D70Z Performance of Urinary Filtration, Intermittent, Less than 6 Hours Per Day (ICD-10-PCS; 2019-09-21)
PROC: 5A1D70Z Performance of Urinary Filtration, Intermittent, Less than 6 Hours Per Day (ICD-10-PCS; 2019-09-23)
DX: S72.401A Unspecified fracture of lower end of right femur, initial encounter for closed fracture (principal); N18.6 End stage renal disease; E46 Unspecified protein-calorie malnutrition; I13.11 Hypertensive heart and chronic kidney disease without heart failure, with stage 5 chronic kidney disease, or end stage renal disease; W18.39XA Other fall on same level, initial encounter; Y93.89 Activity, other specified; Y92.89 Other specified places as the place of occurrence of the external cause; E11.22 Type 2 diabetes mellitus with diabetic chronic kidney disease; E87.6 Hypokalemia; D64.9 Anemia, unspecified; Y99.8 Other external cause status; E66.9 Obesity, unspecified; E11.42 Type 2 diabetes mellitus with diabetic polyneuropathy; M19.90 Unspecified osteoarthritis, unspecified site; Z99.2 Dependence on renal dialysis; Z68.32 Body mass index [BMI] 32.0-32.9, adult; E83.42 Hypomagnesemia; M10.9 Gout, unspecified; E87.70 Fluid overload, unspecified; E87.5 Hyperkalemia; F06.31 Mood disorder due to known physiological condition with depressive features; M51.37 Other intervertebral disc degeneration, lumbosacral region; M85.80 Other specified disorders of bone density and structure, unspecified site; R09.89 Other specified symptoms and signs involving the circulatory and respiratory systems; R26.9 Unspecified abnormalities of gait and mobility; Z79.4 Long term (current) use of insulin
CPT/HCPCS: 36415; 80048; 80053; 81003; 82306; 82607; 82728; 82746; 82962; 83540; 83550; 83735; 84100; 84134; 84443; 85025; 92523; 93970; 97110; 97116; 97162; 97166; 97530; 97535; J1650; J1815; J3475